=== PATIENT | male | born 1980 | race Caucasian/White ===

== ENCOUNTER 2017-03-04 16:08 | Emergency (ER) | payer MEDICAID ==
[~2017-03-04] VITALS: Ht 175.3 cm; Wt 89.0 kg
[~2017-03-04 16:08] MED LIST: None per pt
[2017-03-04] MEDS ORDERED: SODIUM CHLORIDE 0.9% 1,000 ML IV ONE (16:56)
[2017-03-04] MEDS ORDERED: ONDANSETRON ODT 4 MG ONE (16:59)
[2017-03-04] MEDS ORDERED: ONDANSETRON ODT 4 MG PO ONE (17:00)
[2017-03-04] MEDS ORDERED: FAMOTIDINE 20 MG/2 ML IVP ONE (17:00)
[2017-03-04] MEDS ORDERED: ONDANSETRON 2MG/ML, 2ML IVPush ONE (17:00)
[2017-03-04] MEDS ORDERED: SODIUM CHLORIDE 0.9% 1,000ML IVBOLUS ONE (17:00)
[2017-03-04] MEDS ORDERED: MORPHINE SULFATE 4 MG/ML, 1ML IVPush PRN (17:00)
[2017-03-04 17:40] LABS: ASPARTATE AMINO TRANSFERASE 26 U/L (15-37); BLOOD UREA NITROGEN 45 mg/dL (7-18)
[2017-03-04] MEDS ORDERED: FAMOTIDINE 20 MG/2 ML ONE (18:05)
[2017-03-04] MEDS ORDERED: MORPHINE SULFATE 4 MG/ML, 1ML ONE (18:05)
[2017-03-04] MEDS ORDERED: ASPIRIN 81 MG TABLET CHEW PO ONE (20:00)
[2017-03-04 20:35] VITALS: BP 128/68
== END 2017-03-04 20:38 | disposition home or self-care (01) ==
LOC: ED 20:00
DX: R10.9 Unspecified abdominal pain (principal); R11.2 Nausea with vomiting, unspecified; E86.0 Dehydration; N28.9 Disorder of kidney and ureter, unspecified; F12.10 Cannabis abuse, uncomplicated
CPT/HCPCS: 36415; 74022; 80053; 81001; 83690; 85025; 96361; 96374; 96375; Q0162; J7030; S0028